=== PATIENT | female | born 1990 | race Caucasian/White ===

== ENCOUNTER 2023-11-09 12:01 | Emergency (ER) | payer BC ==
--- NOTE | 2023-11-09 13:02 | RAD REPORT ---
EXAM DESCRIPTION: CT - Stone Protocol - 11/09/2023 12:44 pm CLINICAL HISTORY: Flank pain. back pain;Abd pain COMPARISON: <Comparisons> TECHNIQUE: Axial images were obtained without oral or IV contrast. Lack of contrast limits solid org an and vascular assessment. The [id number] spans the entirety of the system partially obscuring uppermost abdomen and lung bases. Coronal reformatted images were obtained and reviewed. All CT scans are performed using dose optimization technique as appropriate and may include automated exposure control or mA/KV adjustment according to patient size. FINDINGS: The lower lung deluca are clear. Imaged portions of the liver and spleen show no suspicious findings on non-contrast imaging.Small fat containing umbilical hernia. The pancreas and adrenal glands are normal. No pathologic lymphadenopat hy in the abdomen or pelvis. No urinary tract stones or obstructive uropathy. No bowel obstruction, free air, free fluid or abscess. The appendix measures 7 mm in thickness. No significant bony abnormality. IMPRESSION: No urinary tract stones or obstructive uropathy. Upper limit of normal appendix. The patient has right lower quadrant pain, consider follow-up imaging 24-48 hours.
[2023-11-09 13:11] LABS: Absolute Eosinophils 0.1 K/uL (0-0.5); Absolute Lymphocytes (CBC) 1.4 K/uL (0.7-4.9); Absolute Monocytes 0.5 K/uL (0.1-1.3); Absolute Neutrophil 4.3 K/uL (1.8-8.0); Basophils % 0.8 % (0-1.3); Eosinophils % 2.2 % (0-4.4); Hemoglobin 14.3 g/dL (12.0-15.0); Lymphocytes % 22.6 % (15.3-44.8); MCH 30.1 pg (27.0-35.0); MCHC 33.2 g/dL (32.0-36.0); MCV 90.8 fL (80-100); MPV 9.2 fL (7.6-11.3); Monocytes % 7.1 % (3.3-12.3); Neutrophils % 67.3 % (41.7-73.7); Platelets 244 thou/uL (152-406); RBC Red Blood Cell Count 4.73 M/uL (3.86-4.86)
[2023-11-09 13:28] LABS: ALT/SGPT 20 U/L (13-56); Albumin 3.7 g/dL (3.4-5.0); Alkaline Phosphatase 62 U/L (45-117); Anion Gap 7.8 mEq/L (5.0-15.0); BUN Blood Urea Nitrogen 10 mg/dL (7-18); Bicarbonate 29 mEq/L (21-32); Bilirubin Total 0.7 mg/dL (0.2-1.0); Globulin 3.6 g/dL (2.3-3.5); Glomerular Filtration Rate 101 ml/min (=/>90); Glucose Level 82 mg/dL (74-106); Lipase 20 U/L (13-75); Potassium 3.8 mEq/L (3.5-5.1); Protein, Total 7.3 g/dL (6.4-8.2); Sodium Level 136 mEq/L (136-145)
[2023-11-09 13:29] LABS: AST/SGOT < 10 U/L (15-37)
[2023-11-09 14:27] LABS: Specific Gravity 1.009 (1.005-1.030)
[2023-11-09 14:29] LABS: Specific Gravity 1.009 (1.005-1.030); Urine Bacteria <20 /HPF (<20); Urine Bilirubin NEGATIVE (Negative); Urine Blood Negative (Negative); Urine Clarity Extremely Turbid (Clear); Urine Color Light-Yellow (Yellow); Urine Culture Reflex Order NOT NEEDED; Urine Glucose NEGATIVE (Negative); Urine Ketones NEGATIVE (Negative); Urine Microscopic Reflex YN ORDER UMIC; Urine Mucus Slight /HPF (None Seen); Urine Nitrite NEGATIVE (Negative); Urine Protein NEGATIVE (Negative); Urine RBC <5 /HPF (None Seen); Urine Urobilinogen Normal (Normal); Urine WBC None Seen /HPF (<5)
--- NOTE | 2023-11-09 14:39 | EDPHYS ---
Physician Documentation [facility] Name: Tammy De Paz Age: 33 yrs Sex: Female : 1990 Arrival Date: 11/09/2023 Time: 12:01 Bed 8 Private MD: ED Physician Marvin Quintanilla HPI: 11/08 14:24 This 33 yrs old Female presents to ER via Ambulatory with complaints of Kidney Pain. rn 14:24 The patient presents with pain that is acute, with no known mechanism of injury. The rn symptoms are located in the left mid back and right mid back. Onset: The symptoms/episode began/occurred 1 week(s) ago. The pain does not radiate. Associated signs and symptoms: Pertinent positives: none Pertinent negatives: chest pain, constipation, dysuria, fever, hematuria, incontinence, nausea, numbness, tingling, urinary retention. Modifying factors: The patient symptoms are alleviated by nothing, the patient symptoms are aggravated by any movement. Severity of symptoms: At their worst the symptoms were moderate, in the emergency department the symptoms are unchanged. The patient has not experienced similar symptoms in the past. The patient has not recently seen a physician. Historical: - Allergies: 12:08 No Known Allergies; ap3 - Home Meds: 12:08 Adderall XR Oral [Active]; ap3 - PSHx: 12:10 None; rs5 - Immunization history:: Client reports receiving the 2nd dose of the Covid vaccine. - Infectious Disease History:: Denies. - Social history:: Smoking status: Patient denies any tobacco usage or history of. - Family history:: not pertinent. - Hospitalizations: : No recent hospitalization is reported. ROS: 14:24 Constitutional: Negative for fever, chills, and weight loss, Cardiovascular: Negative rn for chest pain, palpitations, and edema, Respiratory: Negative for shortness of breath, cough, wheezing, and pleuritic chest pain, Abdomen/GI: Negative for abdominal pain, nausea, vomiting, diarrhea, and constipation, Back: Negative for injury positive for mid back pain MS/Extremity: Negative for injury and deformity, Skin: Negative for injury, rash, and discoloration, Neuro: Negative for headache, weakness, numbness, tingling, and seizure, Exam: 14:24 Constitutional: This is a well developed, well nourished patient who is awake, alert, rn and in no acute distress. Ambulatory to room without difficulty or assistance Cardiovascular: Regular rate and rhythm. No pulse deficits. Respiratory: No increased work of breathing, no retractions or nasal flaring. Abdomen/GI: Soft, non-tender Back: No spinal tenderness. No costovertebral tenderness. MS/ Extremity: Pulses equal, no cyanosis. Neurovascular intact. Full, normal range of motion. Equal circumference. Neuro: Awake and alert, GCS 15 Vital Signs: 12:06 BP 127 / 76; Pulse 73; Resp 17; Temp 97.6; Pulse Ox 100% ; Weight 97.52 kg; Height 5 ap3 ft. 4 in. ; Pain 7/10; 13:14 BP 122 / 79; Pulse 70; Resp 16; Pulse Ox 98% on R/A; rs5 14:17 BP 108 / 82; Pulse 66; Resp 18; Pulse Ox 100% on R/A; ar6 12:06 Body Mass Index 36.90 (97.52 kg, 162.56 cm) ap3 12:06 Pain Scale: Adult ap3 MDM: 12:04 Patient medically screened. rn 14:36 Differential diagnosis: arthritis, chronic back pain, Osteoarthritis Peptic Ulcer rn Perforated Ulcer Pyelonephritis ruptured disc, sprain, Ureterolithiasis vertebral fracture. Data reviewed: vital signs, nurses notes, lab test result(s), radiologic studies, CT scan, and as a result, I will discharge patient. Counseling: I had a detailed discussion with the patient and/or guardian regarding the historical points, exam findings, and any diagnostic results supporting the discharge/admit diagnosis, lab results, radiology results, the need for outpatient follow up, to return to the emergency department if symptoms worsen or persist or if there are any questions or concerns that arise at home. Special discussion: I discussed with the patient/guardian in detail that at this point there is no indication for admission to the hospital. It is understood, however, that if the symptoms persist or worsen the patient needs to return immediately for re-evaluation. ED course: No acute findings and workup today. CT abdomen negative for acute findings as well. CT shows upper limit of normal of Appendix but no secondary signs of acute appendicitis, and patient without right lower quadrant pain or tenderness. Symptoms have also been present a week and if appendicitis I would have thought showed more inflammatory changes or possible perforation by now. . 11/08 12:24 Order name: Test, Urine; Complete Time: 14:30 rn 11/08 12:24 Order name: Urinalysis w/ reflexes; Complete Time: 14:30 rn 11/08 12:31 Order name: CBC with Diff; Complete Time: 13:14 rn 11/08 12:31 Order name: CMP; Complete Time: 14:00 rn 11/08 12:31 Order name: Lipase; Complete Time: 14:00 rn 11/08 12:31 Order name: CT Stone Protocol; Complete Time: 13:14 rn 11/08 12:31 Order name: IV Saline Lock; Complete Time: 13:12 rn 11/08 12:31 Order name: Labs collected and sent; Complete Time: 13:12 rn Administered Medications: No medications were administered Disposition Summary: 11/09/23 14:38 Discharge Ordered Notes: Location: Home rn Problem: an ongoing problem rn Symptoms: are unchanged rn Condition: Stable rn Diagnosis - Back pain rn Followup: rn - With: Private Physician - When: As needed - Reason: Recheck today's complaints, Re-evaluation by your physician Discharge Instructions: - Discharge Summary Sheet rn - Acute Back Pain, Adult rn Forms: - Medication Reconciliation Form rn - Antibiotic rn endocrinology - Prescription Opioid Use rn - Patient Portal Instructions rn - Leadership Thank You Letter rn - Work release form ld1 Prescriptions: - Cyclobenzaprine 10 mg Oral tablet - take 1 tablet ORAL route every 8 hours As needed; 15 tablet; Refills: 0, rn Product Selection Permitted - Tramadol 50 mg Oral Tablet - take 1 tablet ORAL route every 8 hours as needed; 12 tablet; Refills: 0, rn Product Selection Permitted - Medrol (Lopez) 4 mg Oral Tablets, Dose Pack - take 1 tablet ORAL route as directed - follow package instructions; 1 packet; rn Refills: 0, Product Selection Permitted Signatures: Dispatcher [employer] EDMS Marvin Quintanilla MD MD rn Prokisch, Amanda RN RN ap3 Armando Parker RN RN rs5 Corrections: (The following items were deleted from the chart) 12:24 12:24 Test, Urine+UC.LAB.BRZ ordered. EDMS EDMS 12:24 12:24 Urinalysis+U.LAB.BRZ ordered. EDMS EDMS
--- NOTE | 2023-11-09 14:39 | ER ---
Nurse's Notes [facility] Name: Tammy De Paz Age: 33 yrs Sex: Female : 1990 Arrival Date: 11/09/2023 Time: 12:01 Bed 8 Private MD: Diagnosis: Back pain Presentation: 11/08 12:06 Chief complaint: Patient states: she has been having mid back pain that she believes to ap3 be kidney pain for approx one week.. patient rates this pain as a 7/10 on the pain scale at this time. Coronavirus screen: At this time, the client does not indicate any symptoms associated with coronavirus-19. Ebola Screen: No symptoms or risks identified at this time. Initial Sepsis Screen: Does the patient meet any 2 criteria? No. Patient's initial sepsis screen is negative. Does the patient have a suspected source of infection? No. Patient's initial sepsis screen is negative. Risk Assessment: Do you want to hurt yourself or someone else? Patient reports no desire to harm self or others. Onset of symptoms was November 03, 2023. 12:06 Method Of Arrival: Ambulatory ap3 12:06 Acuity: MIKE 3 ap3 Triage Assessment: 12:08 General: Appears in no apparent distress. Behavior is calm, cooperative, appropriate ap3 for age. Pain: Complains of pain in mid back area Pain currently is 7 out of 10 on a pain scale. Neuro: Level of Consciousness is awake, alert, obeys commands, Oriented to person, place, time, situation, Appropriate for age. Cardiovascular: Patient's skin is warm and dry. Respiratory: Airway is patent Respiratory effort is even, unlabored, Respiratory pattern is regular, symmetrical. : Reports "low flow". Historical: - Allergies: 12:08 No Known Allergies; ap3 - Home Meds: 12:08 Adderall XR Oral [Active]; ap3 - PSHx: 12:10 None; rs5 - Immunization history:: Client reports receiving the 2nd dose of the Covid vaccine. - Infectious Disease History:: Denies. - Social history:: Smoking status: Patient denies any tobacco usage or history of. - Family history:: not pertinent. - Hospitalizations: : No recent hospitalization is reported. Screenin:09 [facility] ED Fall Risk Assessment (Adult) History of falling in the last 3 months, ap3 including since admission No falls in past 3 months (0 pts) Confusion or Disorientation No (0 pts) Intoxicated or Sedated No (0 pts) Impaired Gait No (0 pts) Mobility Assist Device Used No (0 pt) Altered Elimination No (0 pt) Score/Fall Risk Level 0 - 2 = Low Risk Oriented to surroundings, Maintained a safe environment, Educated pt \\T\\ family on fall prevention, incl call for assistance when getting out of bed, Assessed \\T\\ reinforced patient's understanding of fall precautions, Hourly rounding (assess needs \\T\\ fall precautionary measures) done, Used ambulatory aids as needed (educated on \\T\\ assisted with), Used gait belt as appropriate. Abuse screen: Denies threats or abuse. Nutritional screening: No deficits noted. Tuberculosis screening: No symptoms or risk factors identified. Assessment: 12:10 General: Appears in no apparent distress. comfortable, Behavior is calm, cooperative. rs5 Pain: Complains of pain in mid back area Pain currently is 3 out of 10 on a pain scale. Quality of pain is described as aching, Is continuous. Neuro: Level of Consciousness is awake, alert, obeys commands, Oriented to person, place, time, situation. Cardiovascular: Patient's skin is warm and dry. Respiratory: Airway is patent Respiratory effort is even, unlabored, Respiratory pattern is regular, symmetrical. GI: Abdomen is round non-distended, Abd is soft and non tender X 4 quads. : No signs and/or symptoms were reported regarding the genitourinary system. EENT: No signs and/or symptoms were reported regarding the EENT system. Derm: Skin is intact, Skin is pink, warm \\T\\ dry. Musculoskeletal: Range of motion: intact in all extremities. 12:30 Reassessment: to bedside, pt states "I can't pee right now". rs5 12:55 Reassessment: to bedside, pt states "I can't pee right now" provider notified. Water rs5 provided to pt per pt request. 13:00 Reassessment: to bedside, urine collection and sent to lab. rs5 13:13 Reassessment: Patient and/or family updated on plan of care and expected duration. Pain rs5 level reassessed. Patient is alert, oriented x 3, equal unlabored respirations, skin warm/dry/pink. 13:29 Reassessment: Patient appears in no apparent distress at this time. No changes from ar6 previously documented assessment. 14:25 Reassessment: Patient and/or family updated on plan of care and expected duration. Pain rs5 level reassessed. Patient is alert, oriented x 3, equal unlabored respirations, skin warm/dry/pink. Vital Signs: 12:06 BP 127 / 76; Pulse 73; Resp 17; Temp 97.6; Pulse Ox 100% ; Weight 97.52 kg; Height 5 ap3 ft. 4 in. ; Pain 7/10; 13:14 BP 122 / 79; Pulse 70; Resp 16; Pulse Ox 98% on R/A; rs5 14:17 BP 108 / 82; Pulse 66; Resp 18; Pulse Ox 100% on R/A; ar6 12:06 Body Mass Index 36.90 (97.52 kg, 162.56 cm) ap3 12:06 Pain Scale: Adult ap3 ED Course: 12:03 Patient arrived in ED. mg5 12:04 Marvin Quintanilla MD is Attending Physician. rn 12:08 Triage completed. ap3 12:09 Arm band placed on left wrist. ap3 12:10 Patient has correct armband on for positive identification. Placed in gown. Bed in low rs5 position. Call light in reach. Side rails up X2. 12:10 No provider procedures requiring assistance completed. rs5 12:36 Armando Parker, RICA is Primary Nurse. rs5 12:45 CT Stone Protocol In Process Unspecified. EDMS 12:45 Inserted saline lock: 22 gauge in right antecubital area, using aseptic technique. rs5 Blood collected. Flushed with 10 mL NS. 14:55 IV discontinued, intact, bleeding controlled, No redness/swelling at site. ld1 Administered Medications: No medications were administered Medication: 13:15 VIS not applicable for this client. rs5 Outcome: 14:38 Discharge ordered by . rn 14:55 Discharged to home ambulatory, ld1 14:55 Condition: stable 14:55 Discharge instructions given to patient, Instructed on discharge instructions, follow up and referral plans. Demonstrated understanding of instructions, follow-up care, 14:55 Patient left the ED. ld1 Signatures: Dispatcher [employer] EDMS Marvin Quintanilla MD MD rn Prokisch, Amanda, RN RN ap3 Nelly Reyna, RN RN ld1 Armando Parker, RN RN rs5 Jayde Whitmore5 Mirna Alex, RN RN ar6
[2023-11-09 15:04] VITALS: TEMP 97.6
[2023-11-09 15:15] VITALS: BP 108/82; O2SAT 100
== END 2023-11-09 14:55 | disposition home or self-care (01) ==
LOC: ER 12:01
DX: M54.9 Dorsalgia, unspecified (principal)
CPT/HCPCS: 36415; 74176; 76377; 80053; 81001; 81025; 83690; 85025; 99283